=== PATIENT | female | born 1995 | race Caucasian/White ===

== ENCOUNTER → 2023-08-26 14:05 | Outpatient (REF) | payer OTHER, SELFPAY | LOC: RAD 14:05 | PROVIDERS: ATTENDING PHYSICIAN Obstetrics & Gynecology; FAMILY PHYSICIAN Internal Medicine | DX: O26.851 Spotting complicating pregnancy, first trimester (principal) | CPT/HCPCS: 76801 ==

== ENCOUNTER → 2024-03-12 14:57 | Outpatient (REF) | payer OTHER, SELFPAY | LOC: WDC 14:57 | PROVIDERS: ATTENDING PHYSICIAN Nurse Practitioner Adult Health; FAMILY PHYSICIAN Family Medicine | DX: N64.4 Mastodynia (principal) | CPT/HCPCS: 76641 ==

== ENCOUNTER → 2024-04-03 14:58 | Outpatient (REF) | payer OTHER, SELFPAY | LOC: PNTC 14:58 | PROVIDERS: ATTENDING PHYSICIAN Nurse Practitioner Family | DX: O36.80X0 Pregnancy with inconclusive fetal viability, not applicable or unspecified (principal) | CPT/HCPCS: 76801 ==

== ENCOUNTER → 2024-04-24 17:41 | Outpatient (REF) | payer OTHER, SELFPAY | LOC: PNTC 17:41 | PROVIDERS: ATTENDING PHYSICIAN Obstetrics & Gynecology | DX: K51.90 Ulcerative colitis, unspecified, without complications (principal); O35.5XX0 Maternal care for (suspected) damage to fetus by drugs, not applicable or unspecified | CPT/HCPCS: 76801; 76813 ==

== ENCOUNTER → 2024-06-18 16:35 | Outpatient (REF) | payer OTHER, SELFPAY | LOC: PNTC 16:35 | PROVIDERS: ATTENDING PHYSICIAN Obstetrics & Gynecology | DX: K51.00 Ulcerative (chronic) pancolitis without complications (principal); O35.5XX0 Maternal care for (suspected) damage to fetus by drugs, not applicable or unspecified | CPT/HCPCS: 76811 ==

== ENCOUNTER → 2024-08-14 16:21 | Outpatient (REF) | payer OTHER, SELFPAY | LOC: PNTC 16:21 | PROVIDERS: ATTENDING PHYSICIAN Student in an Organized Health Care Education/Training Program | DX: O35.5XX0 Maternal care for (suspected) damage to fetus by drugs, not applicable or unspecified (principal); O99.613 Diseases of the digestive system complicating pregnancy, third trimester; K51.00 Ulcerative (chronic) pancolitis without complications | CPT/HCPCS: 76816 ==

== ENCOUNTER → 2024-10-08 11:20 | Outpatient (REF) | payer OTHER, SELFPAY | LOC: PNTC 11:20 | PROVIDERS: ATTENDING PHYSICIAN Obstetrics & Gynecology; OTHER PHYSICIAN Student in an Organized Health Care Education/Training Program | DX: O35.5XX0 Maternal care for (suspected) damage to fetus by drugs, not applicable or unspecified (principal); O99.613 Diseases of the digestive system complicating pregnancy, third trimester; K51.00 Ulcerative (chronic) pancolitis without complications | CPT/HCPCS: 36415; 76816 ==

== ENCOUNTER 2024-10-24 07:04 | Inpatient (IN) | payer OTHER, SELFPAY ==
[2024-10-24] MEDS: LR 1000 IV ×2 (07:18→08:24)
[2024-10-24 07:32] VITALS: BP 117/77; BMI 30.2
[2024-10-24 07:55] LABS: Hemoglobin 10.6 g/dL (12.0-16.0); Mean Corp Hgb Conc. 33.1 g/dL (33.0-37.0); Mean Corpuscular Volume 81.6 fL (81.0-99.0); Mean Platelet Volume 9.9 fL (7.4-10.4); Platelet Count 334 10^3/uL (130-400); Red Blood Cell Count 3.92 10^6/uL (4.20-5.40); Red Cell Dist. Width 14.7 % (11.5-14.5); White Blood Cell Count 7.1 10^3/uL (4.8-10.8)
[2024-10-24] MEDS: BICITRA 30 ML PO (08:24)
[2024-10-24] MEDS: TYLENOL 1000 MG PO (08:24)
[2024-10-24] MEDS: ANCEF 10 IV (08:25)
--- NOTE | 2024-10-24 08:46 | W.SUR.PREOP ---
Pre-Operative Surgical Note
-
I have examined this patient prior to the performance of the scheduled procedure.
The patient's condition is unchanged from the time of the current History and
Physical and the patient is able to undergo the scheduled procedure.
[2024-10-24] MEDS: PITOCIN 30 UNITS/NSS 500 ML IV (09:20)
[2024-10-24] MEDS: MORPHINE SULFATE 4 MG IV (13:07)
[2024-10-24] MEDS: TORADOL 15 MG IV ×2 (16:07→22:19)
[2024-10-24] MEDS: FLUSH (NSS) 4 FLUSH IV (22:21)
[2024-10-24] MEDS: BENADRYL 25 MG IV (22:22)
[2024-10-25] MEDS: PERCOCET 5/325 1 TABLET PO ×2 (03:49→21:41)
[2024-10-25] MEDS: TORADOL 15 MG IV ×2 (03:51→10:16)
[2024-10-25] MEDS: FLUSH (NSS) 3 FLUSH IV (03:53)
[2024-10-25 04:18] LABS: Hematocrit 27.7 % (37.0-47.0); Hemoglobin 9.3 g/dL (12.0-16.0); Mean Corp Hgb Conc. 33.6 g/dL (33.0-37.0); Mean Corpuscular Hgb 27.8 pg (27.0-31.0); Mean Corpuscular Volume 82.9 fL (81.0-99.0); Mean Platelet Volume 10.1 fL (7.4-10.4); Platelet Count 286 10^3/uL (130-400); Red Blood Cell Count 3.34 10^6/uL (4.20-5.40); Red Cell Dist. Width 14.6 % (11.5-14.5); White Blood Cell Count 8.5 10^3/uL (4.8-10.8)
--- NOTE | 2024-10-25 07:56 | W.PN.ANS.POP ---
Anesthesia Post Operative
- Anesthesia Post Op Note
Vital Signs Stable-See Nursing Note: Yes
Airway Patent: Yes
Adequate Pain Control: Yes
Change in Mental Status: No
Current Postoperative Nausea & Vomiting: No
Anesthesia Complications: No
General Anesthetic Recall: No
Unplanned Admission: No
Post Op Hydration Adequate: Yes
[2024-10-25] MEDS: PRENATAL PLUS 1 TABLET PO (09:18)
[2024-10-25] MEDS: FEOSOL 325 MG PO (09:19)
[2024-10-25] MEDS: VITAMIN B-12 500 MCG PO (09:19)
[2024-10-25] MEDS: SENOKOT-S 1 TABLET PO (09:19)
[2024-10-25] MEDS: FOLVITE 0.4 MG PO (09:19)
[2024-10-25] MEDS: TYLENOL 650 MG PO (15:39)
[2024-10-25] MEDS: MOTRIN 600 MG PO (15:39)
[2024-10-26] MEDS: TYLENOL 650 MG PO (04:53)
[2024-10-26] MEDS: MOTRIN 600 MG PO (04:53)
[2024-10-26] MEDS: SENOKOT-S 1 TABLET PO (08:30)
[2024-10-26] MEDS: PRENATAL PLUS 1 TABLET PO (08:30)
[2024-10-26] MEDS: FEOSOL 325 MG PO (08:30)
[2024-10-26] MEDS: VITAMIN B-12 500 MCG PO (08:30)
[2024-10-26] MEDS: FOLVITE 0.4 MG PO (08:30)
[2024-10-26 14:00] LABS: Syphilis/T. pallidum Ab Reflex Negative (Negative)
== END 2024-10-26 12:29 | disposition home or self-care (01) | DRG 788 ==
LOC: LDRP 07:04
PROVIDERS: ADMITTING PHYSICIAN Obstetrics & Gynecology
PROC: 10D00Z1 Extraction of Products of Conception, Low, Open Approach (ICD-10-PCS; 2024-10-24)
DX: O34.211 Maternal care for low transverse scar from previous cesarean delivery (principal); N85.8 Other specified noninflammatory disorders of uterus; O99.824 Streptococcus B carrier state complicating childbirth; Z3A.39 39 weeks gestation of pregnancy; Z37.0 Single live birth
CPT/HCPCS: 36415; 85027; 86780; 86850; 86900; 86901